=== PATIENT | female | born 1995 | race African-American/Black ===

== ENCOUNTER 2017-09-17 23:23 | Emergency (ER) | payer MEDICAID ==
--- NOTE | 2017-09-18 01:29 | ER Document Report ---
ED General - General Chief Complaint: Flank Pain Stated Complaint: NAUSEA Time Seen by Provider: 09/18/17 01:03 Mode of Arrival: Ambulatory Information source: Patient Notes: 21-year-old female with no reported past medical history presents with complaint of back pain, nausea and increased urinary frequency. Patient states that increased urinary frequency started 4 days prior to arrival. She states that she has urgency to urinate but denies any dysuria or hematuria. She states back pain located in the right and left upper lumbar paraspinal region started 3 days prior to arrival. She describes it as a dull ache that is not relieved with ibuprofen. Patient has had associated nausea without vomiting. She denies any fever chills chest pain, shortness of breath, abdominal pain, vaginal discharge, dysuria. She denies current sexual activity or concern for STD. Last menstrual period was several months ago because she is on Depo- Provera. She denies previous history of kidney stones or UTI. TRAVEL OUTSIDE OF THE [place] IN LAST 30 DAYS: No - HPI Onset: Other - 4 days prior to arrival Onset/Duration: Gradual Quality of pain: Achy Severity: Mild Associated symptoms: Nausea, Other - Bilateral low back pain. denies: Chest pain, Nonproductive cough, Diarrhea, Fever, Vomiting Exacerbated by: Denies Relieved by: Denies Similar symptoms previously: No Recently seen / treated by doctor: No - Related Data Allergies/Adverse Reactions: No Known Allergies Allergy (Unverified 06/02/16 03:21) Past Medical History - General Information source: Patient - Social History Smoking Status: Never Smoker Frequency of alcohol use: None Drug Abuse: None Lives with: Family Family History: Reviewed & Not Pertinent - Medical History Medical History: Negative Past Surgical History: Reports: Hx Section Review of Systems - Review of Systems Notes: She denies any fever, chills, chest pain, shortness of breath, abdominal pain, vaginal discharge, dysuria. She denies current sexual activity or concern for STD. Last menstrual period was several months ago because she is on Depo- Provera. She denies previous history of kidney stones or UTI. Physical Exam - Vital signs Vitals: Temp Pulse Resp BP Pulse Ox 98.8 F 89 18 119/77 96 09/18/17 00:24 09/18/17 00:24 09/18/17 00:24 09/18/17 00:24 09/18/17 00:24 Interpretation: Normal. No: Hypertensive, Tachycardic, Febrile Notes: PHYSICAL EXAMINATION: GENERAL: Well-appearing, well-nourished and in no acute distress. HEAD: Atraumatic, normocephalic. EYES: Pupils equal round and reactive to light, extraocular movements intact, conjunctiva are normal. ENT: Nares patent, oropharynx clear without exudates. Moist mucous membranes. NECK: Normal range of motion, supple without lymphadenopathy LUNGS: Breath sounds clear to auscultation bilaterally and equal. No wheezes rales or rhonchi. HEART: Regular rate and rhythm without murmurs ABDOMEN: Soft, nontender, nondistended abdomen. No guarding, no rebound. No masses appreciated. No CVA tenderness Female : deferred Musculoskeletal: Normal range of motion, no pitting or edema. No cyanosis. NEUROLOGICAL: Cranial nerves grossly intact. Normal speech, normal gait. Normal sensory, motor exams PSYCH: Normal mood, normal affect. SKIN: Warm, Dry, normal turgor, no rashes or lesions noted. Course - Re-evaluation Re-evalutation: Laboratory 09/18/17 01:30 Urine Color STRAW Urine Appearance SLIGHTLY-CLOUDY Urine pH 5.0 Ur Specific [place] 1.009 Urine Protein 100 H Urine Glucose (UA) 50 H Urine Ketones NEGATIVE Urine Blood SMALL H Urine Nitrite NEGATIVE Urine Bilirubin NEGATIVE Urine Urobilinogen NEGATIVE Ur Leukocyte Esterase TRACE H Urine WBC (Auto) 20 Urine RBC (Auto) 2 Urine Bacteria (Auto) TRACE Squamous Epi Cells Auto 2 Urine Mucus (Auto) RARE Urine Ascorbic Acid NEGATIVE Urine HCG, Qual NEGATIVE 09/18/17 01:30 21-year-old female with no reported past medical history presents with complaint of back pain, nausea and increased urinary frequency. 09/18/17 02:44 Accu-Chek obtained because of glucosuria and protein found in the urine. This was 81. Patient has no history of diabetes or family history of diabetes. The patient and her mother was made aware of these findings and advised to follow- up with primary care physician for reevaluation. UA significant for trace leukoesterase and 20 WBCs. Patient will be treated for Bactrim because of symptoms of increased urinary frequency, urgency and bilateral flank pain. 09/18/17 19:37 Patient and mother express understanding of these findings and the importance of f/u with the patient's pcp. - Vital Signs Vital signs: Temp Pulse Resp BP Pulse Ox 98.0 F 101 H 16 113/71 98 09/18/17 02:57 09/18/17 02:57 09/18/17 02:57 09/18/17 02:57 09/18/17 02:57 - Laboratory Laboratory results interpreted by me: 09/18/17 01:30 Urine Protein 100 H Urine Glucose (UA) 50 H Urine Blood SMALL H Ur Leukocyte Esterase TRACE H Discharge - Discharge Clinical Impression: Glucosuria, Flank pain UTI (urinary tract infection) Qualifiers: Urinary tract infection type: acute cystitis Hematuria presence: with hematuria Qualified Code(s): N30.01 - Acute cystitis with hematuria Proteinuria Qualifiers: Proteinuria type: unspecified Qualified Code(s): R80.9 - Proteinuria, unspecified Disposition: HOME, SELF-CARE Admitting Provider: Wander Instructions: Trimethoprim-Sulfa ([facility]), Urinary Tract Infection ([facility]) Additional Instructions: Your urinalysis today showed evidence of infection, blood as well as protein and glucose. Your blood sugar today was 81. You should have a repeat urinalysis with your primary care physician to reassess for the glucose and protein that we found in your urine today. Prescriptions: Sulfamethoxazole/Trimethoprim [Bactrim Ds Tablet] 1 each PO BID 5 Days #10 tablet
[2017-09-18 01:48] LABS: APPEARANCE,URINE SLIGHTLY-CLOUDY; BILIRUBIN,URINE NEGATIVE (NEGATIVE); COLOR,URINE STRAW; GLUCOSE, URINE 50 mg/dL (NEGATIVE); KETONES,URINE NEGATIVE (NEGATIVE); LEUKOCYTE ESTERASE,URINE TRACE (NEGATIVE); NITRITE,URINE NEGATIVE (NEGATIVE); PROTEIN,URINE 100 mg/dL (NEGATIVE); URINE SPECIFIC GRAVITY 1.009; UROBILINOGEN,URINE NEGATIVE mg/dL (<2.0)
[2017-09-18] MEDS ORDERED: ONDANSETRON 4 MG TAB.RAPDIS PO ONE (01:55)
[2017-09-18] MEDS ORDERED: AZITHROMYCIN 1 GM SUSP PACKET PO ONE (01:55)
[2017-09-18] MEDS ORDERED: SULFAMETHOXAZOLE/TRIMETHOPRIM 800-160 MG TABLET PO ONE (02:32)
[2017-09-18 03:00] VITALS: BP 113/71
== END 2017-09-18 03:00 | disposition home or self-care (01) ==
LOC: ER 23:23
DX: N30.01 Acute cystitis with hematuria (principal); R80.9 Proteinuria, unspecified; R11.0 Nausea; R81 Glycosuria; R10.9 Unspecified abdominal pain
CPT/HCPCS: 99284; 82962; 81025; 81001; J3490

== ENCOUNTER 2019-05-27 15:27 | Emergency (ER) | payer MEDICAID ==
[2019-05-27 15:33] VITALS: BP 130/77
--- NOTE | 2019-05-27 15:50 | ER Document Report ---
HPI - HPI Time Seen by Provider: 05/27/19 15:45 Notes: 23-year-old female presents to the emergency room for evaluation of nasal congestion and dry cough that started yesterday, tried cough drops without any issues. States she has some back pain from coughing so much yesterday. Denies any history of asthma, denies fevers, chills, chest pain,palpitations, shortness of breath, dyspnea, nausea, vomiting, diarrhea, abdominal pain, hematuria,blurred vision, double vision, loss of vision, speech changes, LH, dizziness, syncope, headaches, wheezing, ST, URI, neck pain, weakness, bowel or bladder dysfunction, saddle anesthesia, numbness or tingling in bilateral upper or lower extremities equally, muscle paralysis, weakness in bilateral upper or lower extremities equally or rash. - REPRODUCTIVE Reproductive: REPORTS: : Past Medical History - General Information source: Patient - Social History Smoking Status: Unknown if Ever Smoked Family History: Reviewed & Not Pertinent Renal/ Medical History: Denies: Hx Peritoneal Dialysis Past Surgical History: Reports: Hx Section Vertical Provider Document - CONSTITUTIONAL Agree With Documented VS: Yes General Appearance: WD/WN Notes: PHYSICAL EXAMINATION: reviewed vital signs by RN GENERAL: Well-appearing, well-nourished and in no acute distress. HEAD: Atraumatic, normocephalic. EYES: Pupils equal round and reactive to light, extraocular movements intact, conjunctiva are normal. ENT: Nares patent, oropharynx clear without exudates. Moist mucous membranes. NECK: Normal range of motion, supple without lymphadenopathy LUNGS: Breath sounds clear to auscultation bilaterally and equal. No wheezes rales or rhonchi. HEART: Regular rate and rhythm without murmurs ABDOMEN: Soft, nontender, nondistended abdomen. No guarding, no rebound. No masses appreciated. Female : deferred Musculoskeletal: Normal range of motion, no pitting or edema. No cyanosis. NEUROLOGICAL: Cranial nerves grossly intact. Normal speech, normal gait. Normal sensory, motor exams PSYCH: Normal mood, normal affect. SKIN: Warm, Dry, normal turgor, no rashes or lesions noted. - INFECTION CONTROL TRAVEL OUTSIDE OF THE [place] IN LAST 30 DAYS: No Course - Re-evaluation Re-evalutation: 05/27/19 15:51 Presentation is most consistent with a viral upper respiratory infection. Patient is overall well appearance, vitals within normal limits, well-hydrated. Patient denies any headache, neck pain, and has no evidence of meningismus on examination. Lungs are clear bilaterally. No evidence of respiratory distress. Based on clinical exam and history, I do not suspect an acute pneumonia, meningitis, strep pharyngitis, or an acute encephalitis. No laboratory or imaging testing is indicated at this time. Will discharge patient with return precautions and followup recommendations. They are in agreement this plan have verbalized understanding return precautions. - Vital Signs Vital signs: Temp Pulse Resp BP Pulse Ox 98.2 F 90 16 130/77 H 98 05/27/19 15:32 05/27/19 15:32 05/27/19 15:32 05/27/19 15:32 05/27/19 15:32 Discharge - Discharge Clinical Impression: Viral URI with cough Condition: Stable Disposition: HOME, SELF-CARE Instructions: Viral Syndrome ([facility]) Additional Instructions: Your symptoms are likely due to a virus. However, it is important that you continue to monitor for any concerning symptoms including inability to tolerate oral fluids, less than 2 urinations in a 24 hour period, and lethargy (your child is acting very tired, not interactive, will not respond to you). Please continue to offer oral solutions such as Pedialyte. It is okay if your child does not want to eat over the next several days but it is important that they continue to drink fluids. You may also provide a medication such as ibuprofen (Motrin) or acetaminophen (Tylenol) per box instructions for fever. 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 Forms: Return to Work Referrals: HITESH VALERO MD [ACTIVE STAFF] - Follow up as needed
== END 2019-05-27 15:54 | disposition home or self-care (01) ==
LOC: ER 15:27
DX: O99.519 Diseases of the respiratory system complicating pregnancy, unspecified trimester (principal); J06.9 Acute upper respiratory infection, unspecified; B97.89 Other viral agents as the cause of diseases classified elsewhere; O26.899 Other specified pregnancy related conditions, unspecified trimester; R09.81 Nasal congestion; R05 Cough; O99.89 Other specified diseases and conditions complicating pregnancy, childbirth and the puerperium; M54.9 Dorsalgia, unspecified; Z3A.00 Weeks of gestation of pregnancy not specified
CPT/HCPCS: 99283

== ENCOUNTER 2020-01-27 12:57 | Emergency (ER) | payer MEDICAID ==
[2020-01-27 13:17] VITALS: BP 116/81
[2020-01-27] MEDS ORDERED: ACETAMINOPHEN 325 MG TABLET PO ONE (13:44)
--- NOTE | 2020-01-27 13:45 | ER Document Report ---
ED General - General Chief Complaint: Headache Stated Complaint: DIZZINESS,HEADACHE,COUGH Time Seen by Provider: 01/27/20 13:10 Mode of Arrival: Ambulatory Information source: Patient Notes: 24-year-old female with no previous medical problems presents to the emergency room complaining of a frontal headache with nasal congestion for the past 2 days. Describes it as an aching sensation. No head trauma or head injury. No history of migraines. Not worst headache of her life. No sudden thunderclap. Does not keep her awake at night. Has been taking ibuprofen without relief. Denies frequent headaches. Recently traveled to [place] but has had no known COVID-19 exposure. Eating and drinking normally. No fevers TRAVEL OUTSIDE OF THE [place] IN LAST 30 DAYS: No - Related Data Allergies/Adverse Reactions: No Known Allergies Allergy (Verified 05/27/19 15:39) Home Medications: NO HOME MEDS Past Medical History - General Information source: Patient - Social History Smoking Status: Never Smoker Frequency of alcohol use: Occasional Drug Abuse: None Family History: Reviewed & Not Pertinent Patient has homicidal ideation: No Renal/ Medical History: Denies: Hx Peritoneal Dialysis Past Surgical History: Reports: Hx Section Review of Systems - Review of Systems Constitutional: No symptoms reported EENT: Nose congestion, Sinus pressure Cardiovascular: No symptoms reported Respiratory: No symptoms reported Musculoskeletal: No symptoms reported Skin: No symptoms reported Neurological/Psychological: Headaches -: Yes All other systems reviewed and negative Physical Exam - Vital signs Vitals: Temp Pulse Resp BP Pulse Ox 98.9 F 86 16 116/81 100 01/27/20 13:15 01/27/20 13:15 01/27/20 13:15 01/27/20 13:15 01/27/20 13:15 - General General appearance: Appears well, Alert In distress: Mild - HEENT Head: Normocephalic, Atraumatic Eyes: Normal Pupils: PERRL Ears: Normal External canal: Normal Tympanic membrane: Other - Bilateral tympanic membranes are dull and retracted with clear fluid noted behind the tympanic membranes bilaterally. Sinus: Frontal Nasal: Normal Mucous membranes: Normal Pharynx: Normal - Respiratory Respiratory status: No respiratory distress Chest status: Nontender Breath sounds: Normal Chest palpation: Normal - Cardiovascular Rhythm: Regular Heart sounds: Normal auscultation Murmur: No - Neurological Neuro grossly intact: Yes Cognition: Normal Orientation: AAOx4 [place] Coma Scale Eye Opening: Spontaneous [place] Coma Scale Verbal: Oriented Dharmesh Coma Scale Motor: Obeys Commands [place] Coma Scale Total: 15 Speech: Normal Motor strength normal: LUE, RUE, LLE, RLE Sensory: Normal - Skin Skin Temperature: Warm Skin Moisture: Dry Skin Color: Normal Course - Re-evaluation Re-evalutation: 01/27/20 14:10 Patient with no COVID-19 exposure. Does not meet criteria for COVID-19 testing. Counseled patient on a viral URI. Will medicate with Tylenol. Will discharge home on Flonase. She was counseled on need to follow-up with her primary care physician if she is not improving in 2 to 3 days. Patient was given strict return to the emergency room guidelines. Return for any new or worsening sympto ms. All questions were answered. Patient verbalized understanding and agrees with plan of care. - Vital Signs Vital signs: Temp Pulse Resp BP Pulse Ox 98.9 F 86 16 116/81 100 01/27/20 13:18 01/27/20 13:15 01/27/20 13:15 01/27/20 13:15 01/27/20 13:15 Discharge - Discharge Clinical Impression: Viral URI Condition: Stable Disposition: HOME, SELF-CARE Instructions: Viral Syndrome ([facility]), Upper Respiratory Illness ([facility]) Additional Instructions: Take Tylenol and/or Motrin as needed for pain. Use nasal spray as prescribed. Follow-up with primary care physician if not improving in 2 to 3 days. Return to the emergency room for any new or worsening symptoms. Prescriptions: Fluticasone Propionate [Flonase Nasal [place] 50 Mcg/[place] 16 gm] 2 spray NASL DAILY #1 inhaler Forms: Return to Work
== END 2020-01-27 14:17 | disposition home or self-care (01) ==
LOC: ER 12:57
DX: J06.9 Acute upper respiratory infection, unspecified (principal); R42 Dizziness and giddiness; R51 Headache; R05 Cough; R09.81 Nasal congestion
CPT/HCPCS: 99282; J3490